=== PATIENT | male | born 1960 | race Caucasian/White ===

== ENCOUNTER 2018-04-07 09:17 | Emergency (ER) | payer MEDICARE, OTHER ==
[~2018-04-07] VITALS: Ht 188 cm; Wt 106.4 kg
[2018-04-07] MEDS ORDERED: diphenhydrAMINE 50 mg/ml inj IM ONE (09:35)
[2018-04-07] MEDS ORDERED: QUETIAPINE 200 MG TAB.SR.24H PO SCH (09:35)
[2018-04-07] MEDS ORDERED: haloperidol lactate 5mg/ml inj IM ONE (09:35)
[2018-04-07 09:52] LABS: BASOPHILS % (AUTO) 0.5 % (0-1); EOSINOPHILS # (AUTO) 0.1 X10'3 (0-0.9); EOSINOPHILS % (AUTO) 0.8 % (0-6); HEMATOCRIT 46.6 % (42.0-52.0); HEMOGLOBIN 16.1 g/dl (14.0-17.9); LYMPHOCYTES # (AUTO) 1.8 X10'3 (1.1-4.8); MEAN CORPUSCULAR HEMOGLOBIN 32.1 PG (27.0-31.0); MEAN CORPUSCULAR HGB CONC 34.5 % (33.0-36.5); MEAN CORPUSCULAR VOLUME 93.1 FL (78-98); MEAN PLATELET VOLUME 7.3 FL (7.4-10.4); MONOCYTES # (AUTO) 0.5 X10'3 (0-0.9); NEUTROPHILS # (AUTO) 5.8 X10'3 (1.8-7.7); NEUTROPHILS % (AUTO) 70.7 % (42-75); PLATELET COUNT 255 X10'3 (140-440); RED CELL DISTRIBUTION WIDTH 15.1 % (11.5-14.5); WHITE BLOOD COUNT 8.2 X10'3 (4.5-11.0)
[2018-04-07 10:10] LABS: ALANINE AMINOTRANSFERASE 62 U/L (12-78); ALBUMIN 3.8 G/DL (3.4-5.0); ALBUMIN/GLOBULIN RATIO 0.9 (1.1-1.5); ALKALINE PHOSPHATASE 82 IU/L (46-116); ANION GAP 11 (8-16); ASPARTATE AMINO TRANSFERASE 38 U/L (10-37); BILIRUBIN,TOTAL 0.4 MG/DL (0.1-1.0); BLOOD UREA NITROGEN 12 MG/DL (7-18); BUN/CREATININE RATIO 10.9 (5.4-32.0); CALCIUM 8.6 MG/DL (8.5-10.1); CHLORIDE 100 MMOL/L (99-107); GLUCOSE 225 MG/DL (70-104); POTASSIUM 3.2 MMOL/L (3.5-5.1); SODIUM 140 MMOL/L (135-145); TOTAL CARBON DIOXIDE 29.1 MMOL/L (24-32); TOTAL PROTEIN 8.1 G/DL (6.4-8.2); eGFR 69 ML/MIN
[2018-04-07 10:18] LABS: ACETAMINOPHEN < 2.0 UG/ML (10-30); ETHANOL < 0.010 GM/DL (0.0-0.010); VALPROATE < 3.0 UG/ML (50-100)
[2018-04-07 10:39] LABS: CLARITY,URINE SLIGHTLY CLOUDY (Clear); COLOR,URINE YELLOW (Yellow); GLUCOSE, URINE 250 mg/dl (Neg); KETONES,URINE NEGATIVE (Neg); LEUKOCYTE ESTERASE ,URINE NEGATIVE (Neg); NITRITES, URINE NEGATIVE (Neg); OCCULT BLOOD,URINE NEGATIVE (Neg); PROTEIN,URINE 30 mg/dl (Neg)
[2018-04-07 10:41] LABS: UA COLLECTION TYPE CLN CATCH MIDSTREAM
[2018-04-07 10:43] LABS: URINE AMPHETAMINE SCREEN NEGATIVE (Neg); URINE BARBITUATE SCREEN NEGATIVE (Neg); URINE BENZODIAZEPINES SCREEN POSITIVE (Neg); URINE CANNABINOID SCREEN NEGATIVE (Neg); URINE COCAINE SCREEN NEGATIVE (Neg); URINE METHADONE SCREEN NEGATIVE (Neg); URINE OPIATE SCREEN NEGATIVE (Neg); URINE PHENCYCLIDINE SCREEN NEGATIVE (Neg)
[2018-04-07] MEDS ORDERED: CLOP75TA15 PO (10:57)
[2018-04-07] MEDS ORDERED: ASPI81TA52 PO (10:57)
[2018-04-07] MEDS ORDERED: METO1TAB25 PO (10:57)
[2018-04-07] MEDS ORDERED: ATOR40TA PO (10:57)
[2018-04-07] MEDS ORDERED: FENO160T PO (10:57)
[2018-04-07] MEDS ORDERED: QUET-1 PO (10:57)
[2018-04-07 11:01] LABS: HYALINE CASTS 0-3 /LPF (NEGATIVE); MUCUS STRANDS MANY /LPF (Neg); SQUAMOUS EPITHELIAL CELL,UR MANY /LPF (FEW)
[2018-04-07 11:05] LABS: AMORPHOUS URATES 1+
[2018-04-07 11:06] LABS: BACTERIA,URINE FEW /HPF (Neg); RBC,URINE NONE SEEN /HPF (0-2); WBC,URINE 0-4 /HPF (0-4)
[2018-04-07] MEDS ORDERED: non-formulary drug (Metoprolol/Hydrochlorothiazide 50/25 MG* (Lopressor Hct 50/25 MG*) 1 T PO SCH (20:00)
[2018-04-07] MEDS: metoprolol tartrate 50mg tablet PO SCH (20:00)
[2018-04-07] MEDS: HYDROchlorothiazide 25mg tablet PO SCH (20:00)
[2018-04-07] MEDS ORDERED: quetiapine 100mg tablet PO SCH (21:00)
[2018-04-07] MEDS ORDERED: LORazepam 1 MG tablet PO ONE (22:00)
[2018-04-08 05:23] VITALS: BP 109/59
[2018-04-08] MEDS ORDERED: magnesium oxide 400mg tablet PO ONE (06:50)
[2018-04-08] MEDS ORDERED: potassium chloride 10mEq CAPSULE.SA PO ONE (06:50)
[2018-04-08] MEDS ORDERED: potassium Cl 20 mEq SR tablet PO ONE (06:50)
[2018-04-08] MEDS: HYDROchlorothiazide 25mg tablet PO SCH (07:27)
[2018-04-08] MEDS: metoprolol tartrate 50mg tablet PO SCH (07:28)
[2018-04-08] MEDS ORDERED: atorvastatin 20mg tablet PO SCH (08:00)
[2018-04-08] MEDS ORDERED: clopidogrel 75mg tablet PO SCH (08:00)
[2018-04-08] MEDS ORDERED: fenofibrate 145mg tablet PO SCH (08:00)
[2018-04-08] MEDS ORDERED: aspirin 81mg tablet.DR PO SCH (08:00)
== END 2018-04-08 08:50 ==
LOC: ER 09:17
DX: R45.851 Suicidal ideations (principal); F20.9 Schizophrenia, unspecified; E11.42 Type 2 diabetes mellitus with diabetic polyneuropathy; I10 Essential (primary) hypertension; Z88.0 Allergy status to penicillin; Z79.82 Long term (current) use of aspirin; Z79.899 Other long term (current) drug therapy
CPT/HCPCS: 36415; 80053; 80164; 80178; 80305; 80320; 80329; 81001; 82948; 84443; 85025; 96372; 99285; J1200; J1630; 99284

== ENCOUNTER 2018-04-15 11:02 | Emergency (ER) | payer OTHER ==
[~2018-04-15] VITALS: Ht 188 cm; Wt 109.1 kg
[~2018-04-15 11:02] MED LIST: ASPI81TA52 PO; ATOR40TA PO; CLOP75TA15 PO; FENO160T PO; METO1TAB25 PO; QUET-1 PO
[2018-04-15 12:34] VITALS: BP 138/88
== END 2018-04-15 14:26 | disposition home or self-care (01) ==
LOC: ER 11:03
DX: M25.562 Pain in left knee (principal); E11.42 Type 2 diabetes mellitus with diabetic polyneuropathy; I10 Essential (primary) hypertension; Z90.49 Acquired absence of other specified parts of digestive tract; Z98.890 Other specified postprocedural states; Z88.0 Allergy status to penicillin; Z79.82 Long term (current) use of aspirin; Z79.899 Other long term (current) drug therapy
CPT/HCPCS: 29505; 73560; 99284